=== PATIENT | female | born 1960 | race Caucasian/White ===

== ENCOUNTER 2016-06-29 17:38 | Observation (INO) | payer SELFPAY ==
[2016-06-29 17:51] VITALS: BMI 24.2
[2016-06-29 18:13] LABS: AUTOMATED BASOPHIL 0.5 % (0-2); AUTOMATED EOSINOPHIL 4.6 % (0-5); AUTOMATED LYMPH 21.9 % (17-44); AUTOMATED MONOCYTE 5.6 % (3-10); AUTOMATED NEUTROPHIL 67.4 % (45-76); MPV 8.3 fL (7.4-10.4)
[2016-06-29 18:27] LABS: BLOOD UREA NITROGEN 11 MG/DL (7-17); CALCIUM 9.6 MG/DL (8.4-10.2); CALCULATED OSMOLALITY 263 MOs/Kg (270-290); CHLORIDE 98 mEq/L (98-107); GLUCOSE 99 MG/DL (70-99); SODIUM LEVEL 137 mEq/L (137-146); TOTAL PROTEIN 7.4 G/DL (6.3-8.2)
--- NOTE | 2016-06-29 18:42 | EDPRACDOC ---
[id number] Provider: 06/29/16 18:38 Information Source: Patient Mode of Arrival: Car Home Medications: Home Medications Amlodipine [Norvasc] 5 mg PO DAILY 02/21/14 Metoprolol Tartrate [Lopressor] 25 mg PO DAILY 02/21/14 Albuterol Sulfate [Proair Hfa] 2 puff INH Q4-6H PRN 11/22/15 Montelukast Sodium [Singulair] 10 mg PO QHS 11/22/15 Oxycodone HCl [Oxycodone Immediate Release] 15 mg PO QID PRN 11/22/15 Tizanidine HCl 4 mg PO DAILY PRN 06/29/16 Trazodone HCl 100 mg PO QHS 06/29/16 Prednisone [Sterapred 10 mg/6 day pack] 21 tab PO DAILY #1 pack 06/30/16 Allergies/Adverse Reactions: Allergies Allergy/AdvReac Type Severity Reaction Status Date / Time gabapentin [From Neurontin] Allergy See Verified 06/29/16 20:49 Comments - History of Present Illness Onset: yesterday HPI: CHEST PRESSURE LEFT SIDE STARTED YESTERDAY ABOUT 1999. AFTER MILKSHAKE. N/ V WHEN SHE GOT HOME. FELT SOB LIKE A PANIC ATTACK. USES OXYGEN 2 L AT NIGHT. PAIN RETURNED AGAIN ABOUT NOON. PRESSURE 7/10. NAUSEA TODAY. NO VOMITING. NO ETOH USE. NONSMOKER. HTN, ELEVATED CHOLESTEROL. GRANDPARENTS OH'S. PT NOT DIABETIC. QUIT SMOKING 3 YEARS AGO. H/O BRONCHIOLITIS OBLITERANS PNA. STRESS TEST ABOUT 6 YEARS AGO NEGATIVE. PRESSURE WORSE WITH EXERTION. ED Past Medical History - Patient Medical History Cardiac History: Reports: Hypertension Respiratory History: Reports: Asthma Surgical History: Reports: Tonsillectomy/Adnoidectomy - Social Medical History Smoking Status: Never smoker - Physical Exam Constitutional: Alert (Awake), No apparent distress Oriented to: Time, Person, Place Last recorded Vital Signs: Last Vital Signs Temp 98.3 F 06/29/16 17:49 Pulse 56 L 06/29/16 17:49 Resp 18 06/29/16 17:49 BP 151/67 06/29/16 17:49 Pulse Ox 98 06/29/16 17:49 Oxygen Pulse Oxygen Saturation 98 O2 Device Room Air Oxygen Flow Rate Fraction of Inspired Oxygen ( FIO2) - HEENT Head: Normal ( normocephalic) Eye Exam: Normal (PERRL, EOMI, Sclera white) Oropharynx: Normal (Pharynx:Moist without exudate,Gums-no swelling) Nose: No Symptoms Reported (septum midline) Neck: Normal (FROM, trachea at midline) - Respiratory/Cardiovascular Respiratory: Normal - CTA (BBS clear to auscultation without adventitious sounds ) Cardiovascular: Normal (RRR without murmur, gallop or rub) - GI Auscultation: Normal (NABS) Palpation: Normal (Soft,No rebound or guarding, non distended) Tenderness: Non tender Mcdonnell's Sign: Negative - Musculoskeletal Back: Normal (Non-Tender) Extremities: Normal (Normal tone, Pulses 2+ No cyanosis or edema, FROM) - Integumentary Skin: Normal, Warm, Dry Lymphatics: Normal (no adenopathy) - Neurologic Memory Impaired: Normal Motor Function: Normal (Normal tone, Pulses 2+ No cyanosis or edema, FROM) Cranial Nerve: Normal (CN II-X11 intact sensation, strength 5/5) Cerebellar: Normal Mood Description: Normal Perception: Normal - Action ASA given in the ED: Yes - Results 06/29/16 17:55 06/30/16 05:55 WBC 7.6 xk/uL (3.8-10.8) 06/29/16 17:55 RBC 4.88 xM/uL (4.20-5.40) 06/29/16 17:55 Hgb 15.0 g/dL (12.0-16.0) 06/29/16 17:55 Hct 44.2 % (36-47) 06/29/16 17:55 MCV 91 fL (81-99) 06/29/16 17:55 MCH 30.8 pg (27-32) 06/29/16 17:55 MCHC 34.0 g/dl (33-36) 06/29/16 17:55 RDW 12.8 % (11.5-14.5) 06/29/16 17:55 Plt Count 263 xk/uL (130-400) 06/29/16 17:55 MPV 8.3 fL (7.4-10.4) 06/29/16 17:55 Neut % (Auto) 67.4 % (45-76) 06/29/16 17:55 Lymph % (Auto) 21.9 % (17-44) 06/29/16 17:55 Luce % (Auto) 5.6 % (3-10) 06/29/16 17:55 Eos % (Auto) 4.6 % (0-5) 06/29/16 17:55 Baso % (Auto) 0.5 % (0-2) 06/29/16 17:55 Absolute Neuts (auto) 5.09 xk/uL (1.7-8.2) 06/29/16 17:55 Absolute Lymphs (auto) 1.60 xk/uL (0.65-4.75) 06/29/16 17:55 Sodium 137 mEq/L (137-146) 06/29/16 17:55 Potassium 3.9 mEq/L (3.5-5.1) 06/29/16 17:55 Chloride 98 mEq/L (98-107) 06/29/16 17:55 Carbon Dioxide 31 mMOL/L (22-33) 06/29/16 17:55 Anion Gap 12 mEq/L (8-16) 06/29/16 17:55 BUN 11 MG/DL (7-17) 06/29/16 17:55 Creatinine 0.90 MG/DL (0.52-1.04) 06/29/16 17:55 Estimated GFR (MDRD) > 60 mL/min (>=60) 06/29/16 17:55 Glucose 99 MG/DL (70-99) 06/29/16 17:55 Calculated Osmolality 263 MOs/Kg (270-290) L 06/29/16 17:55 Calcium 9.6 MG/DL (8.4-10.2) 06/29/16 17:55 Total Bilirubin 0.5 MG/DL (0.2-1.3) 06/29/16 17:55 AST 109 IU/L (14-36) H 06/29/16 17:55 ALT 167 IU/L (9-52) H 06/29/16 17:55 Alkaline Phosphatase 143 IU/L (38-126) H 06/29/16 17:55 Total Protein 7.4 G/DL (6.3-8.2) 06/29/16 17:55 Albumin 4.2 G/DL (3.5-5.0) 06/29/16 17:55 Lab Results 06/29/16 06/29/16 17:55 17:55 WBC 7.6 RBC 4.88 Hgb 15.0 Hct 44.2 MCV 91 MCH 30.8 MCHC 34.0 RDW 12.8 Plt Count 263 MPV 8.3 Neut % (Auto) 67.4 Lymph % (Auto) 21.9 Luce % (Auto) 5.6 Eos % (Auto) 4.6 Baso % (Auto) 0.5 Absolute Neuts (auto) 5.09 Absolute Lymphs (auto) 1.60 Sodium 137 Potassium 3.9 Chloride 98 Carbon Dioxide 31 Anion Gap 12 BUN 11 Creatinine 0.90 Estimated GFR (MDRD) > 60 Glucose 99 Calculated Osmolality 263 L Calcium 9.6 Total Bilirubin 0.5 AST 109 H ALT 167 H Alkaline Phosphatase 143 H Total Protein 7.4 Albumin 4.2 Laboratory Results - last 24 hr 06/29/16 06/29/16 17:55 17:55 WBC 7.6 RBC 4.88 Hgb 15.0 Hct 44.2 MCV 91 MCH 30.8 MCHC 34.0 RDW 12.8 Plt Count 263 MPV 8.3 Neut % (Auto) 67.4 Lymph % (Auto) 21.9 Luce % (Auto) 5.6 Eos % (Auto) 4.6 Baso % (Auto) 0.5 Absolute Neuts (auto) 5.09 Absolute Lymphs (auto) 1.60 Sodium 137 Potassium 3.9 Chloride 98 Carbon Dioxide 31 Anion Gap 12 BUN 11 Creatinine 0.90 Estimated GFR (MDRD) > 60 Glucose 99 Calculated Osmolality 263 L Calcium 9.6 Total Bilirubin 0.5 AST 109 H ALT 167 H Alkaline Phosphatase 143 H Total Protein 7.4 Albumin 4.2 Laboratory Results 06/29/16 17:55 06/29/16 17:55 - EKG EKG #1 EKG Time: 17:44 -: Yes EKG interpreted by me Rate: bpm: 56 [place]: Normal Rhythm: SB Block: None Hypertrophy: None ST: Normal Comments: NORMAL EKG - Departure Yes I personally saw and evaluated the patient. Disposition: Admit IP To This Hospital Condition: Stable Final Diagnosis: Chest pain Qualifiers: Chest pain type: unspecified Qualified Code(s): R07.9 - Chest pain, unspecified Decision to Admit Time: 19:30 Decision to admit date: 07/05/16 Decision to admit: from ED - Physician Consulted Hospitalist Time Called: 19:30 Provider Called: Irving Arredondo Time Supervisor Maintenance Returned Call: 19:30
[2016-06-29 18:43] LABS: PARTIAL THROMB. TIME 25.1 SEC (22-35)
[2016-06-29] MEDS ORDERED: ASPIRIN (CHEWABLE) 81 MG TAB PO ONE (18:43)
--- NOTE | 2016-06-29 19:06 | DIRPT ---
CLINICAL DATA: Chest pain. EXAM: PORTABLE CHEST 1 VIEW COMPARISON: November 22, 2015. FINDINGS: The heart size and mediastinal contours are within normal limits. Both lungs are clear. No pneumothorax or pleural effusion is noted. The visualized skeletal structures are unremarkable. IMPRESSION: No acute cardiopulmonary abnormality seen. Electronically Signed By: Luis Wen Jr, M.D. On: 06/29/2016 19:03
[2016-06-29] MEDS ORDERED: Pharmacy Order Set Alert SCH (20:00)
[2016-06-29] MEDS ORDERED: ENOXAPARIN 40 MG/0.4 ML PFS SQ SCH (20:00)
--- NOTE | 2016-06-29 20:19 | HISTPHYS ---
- Chief Complaint Chest tightness started last night around 8:00 p.m. after a milk shake followed by vomiting - History of Present Illness Patient is a 56-year-old white female who lives with her son came into the emergency room this evening complaining of left-sided chest discomfort starting at 8:00 p.m. last night after she had a milkshake followed 5 vomiting. She felt very panicky. She has a history of BOOP and takes p.r.n. prednisone on chronic O2 and claims to have quit smoking 3 years ago a 1.5 years prior to her getting the BOOP. Her data architect is Dr. Mosley in [facility]. She mentions that the chest pressure she had last night and today seem to be exacerbated by exertion. She tells me that she starting to feel the same sensation she did 1.5 years ago with the BOOP but when I reviewed the chest x- ray it looks pretty normal. - Medical History Cardiac History: Reports: Hypertension Respiratory History: Reports: Asthma, Pneumonia (History boop 1.5 years ago) Musculoskeletal History: Reports: Osteoarthritis (Osteoporosis) Systemic History: Reports: No Significant History Psychological History: Reports: No Significant History - Surgical History Reports: Cholecystectomy, Tonsillectomy/Adnoidectomy L4-5 discs shaving - Medictions/Allergies Allergies gabapentin [From Neurontin] Allergy (Verified 11/22/15 13:52) See Comments ONE SIDE OF BODY SWELLED Current Medication List: Reviewed Home Medications Amlodipine [Norvasc] 5 mg PO DAILY 02/21/14 Metoprolol Tartrate [Lopressor] 25 mg PO DAILY 02/21/14 Albuterol Sulfate [Proair Hfa] 2 puff INH Q4-6H PRN 11/22/15 Montelukast Sodium [Singulair] 10 mg PO QHS 11/22/15 Oxycodone HCl [Oxycodone Immediate Release] 15 mg PO QID PRN 11/22/15 - Family History Reports: Hypertension, Diabetes - Social History Travel Outside of [place] in the Last 3 Months?: No Lives: With Family Smoking Status: Former smoker (Stopped cigarettes 3 years) Social History: Reports: Alcohol Use. Denies: Substance Use Disorder (But occasional wine) - Review of Systems Constitutional: No Symptoms Reported (No Fever, chills, wt loss/gain, diaphoresis,fatigue/malaise.) Eyes: No Symptoms Reported (No blurry vision, visual changes, eye pain, or eye redness.) Ears: No Symptoms Reported (No ear pain or discharge) Nose: No Symptoms Reported (No nasal discharge/congestion or bleeding) Mouth: No Symptoms Reported (No oropharyngeal lesions or erythema) Throat/Neck: No Symptoms Reported (No throat pain or swelling.No oropharyngeal lesions or erythema.) Respiratory: Shortness of Breath Cardiovascular: Chest Pain Gastrointestinal: No Symptoms Reported (No abdominal pain, nausea, vomiting, diarrhea, constipation, or bloody stool.) Genitourinary: No Symptoms Reported (No dysuria or hematuria.) Neurological: No Symptoms Reported (No headache, dizziness, seizures, or focal weakness.) Musculoskeletal:: No Symptoms Reported Integumentary: No Symptoms Reported (no rashes or lesions) Allergic/Immunologic: No Symptoms Reported (no rashes or lesions) Hematologic: No Symptoms Reported (No chronic anemia, bleeding, or easy bruising.), Other (Lymphatics- no lymph node swelling or pain.) Endocrine: No Symptoms Reported (No thyroid issues, polyuria, or polydipsia.) Psychiatric: No Symptoms Reported (Fully oriented, with normal and appropriate affect.) - Physical Exam Vital Signs: Initial Vitals Temperature 98.3 F 06/29/16 17:49 Pulse Rate 56 L 06/29/16 17:49 Respiratory Rate 18 06/29/16 17:49 Blood Pressure 151/67 06/29/16 17:49 Pulse Oxygen Saturation 98 06/29/16 17:49 Constitutional: Alert (Awake, Fully oriented. Normal and appropriate affect.Well appearing. Well nourished.), No apparent distress Oriented to: Time, Person, Place - HEENT Head: Normal (normocephalic, atraumatic.), Other (No cervical lymphadenopathy. No supraclavicular lymphadenopathy. Neck: No palpable mass, supple , trachea midline.) Eye: Normal (pupils equal, reactive to light, and round; EOMI, Sclera white) Oropharynx: Normal (Pharynx: Moist without exudate,Gums-no swelling, No oropharyngeal lesions or erythema, Mucous membranes are dry.) ENT EAC: Normal (No oropharyngeal lesions or erythema. Mucous membranes are dry. ) TMJ: Normal Nose: No Symptoms Reported (septum midline, Nares patent, without discharge or bleeding.) Respiratory: Normal - CTA (Clear to auscultation bilaterally. No wheezing, rales , rhonchi. Chest wall movements are symmetric. No use of accessory muscles to breathe.) Cardiovascular: Normal (RRR , Normal S1, S2. No murmurs, rubs, or gallops. PMI non-displaced. Carotids: no carotid bruits. No bradycardia or tachycardia. DP pulses 2+ bilaterally.) - GI Auscultation: Normal (normal active sounds) Palpation: Normal (Soft,non distended,nontender. No hepatosplenomegaly.) Tenderness: Non tender (No rebound or guarding) Mcdonnell's Sign: Negative - Musculoskeletal Back: Normal (Non-Tender) Extremities: Normal (Normal tone, DP pulses 2+ bilaterally, No cyanosis or edema bilaterally, FROM bilaterally.) Spine: non-tender, normal alignment, limited range of motion - Integumentary Skin: Normal (Clean, dry, and intact. No rashes. No lesions.) Lymphatics: Normal (No cervical lymphadenopathy. No supraclavicular lymphadenopathy.) - Neurologic Memory Impaired: Normal Motor Function: Normal (Motor 5/5 throughout.Normal tone, Pulses 2+ No cyanosis or edema, FROM) Cranial Nerve: Normal (CN II-XII intact sensation, strength 5/5) Cerebellar: Normal. negative: Ataxia, Past-Pointing, Tremor Mood Description: Normal (Fully oriented. Normal and appropriate affect.) Thought: Coherent Perception: Normal (Normal and appropriate affect.) - Focused CV Perfusion Exam Vital Signs: Last Vital Signs Temp 98.3 F 06/29/16 17:49 Pulse 52 L 06/29/16 19:18 Resp 20 06/29/16 19:18 BP 147/69 06/29/16 19:18 Pulse Ox 97 06/29/16 19:18 - Lab Results 06/29/16 17:55 06/29/16 17:55 Laboratory Results - last 24 hr 06/29/16 06/29/16 06/29/16 17:55 17:55 17:55 WBC 7.6 RBC 4.88 Hgb 15.0 Hct 44.2 MCV 91 MCH 30.8 MCHC 34.0 RDW 12.8 Plt Count 263 MPV 8.3 Neut % (Auto) 67.4 Lymph % (Auto) 21.9 [place] % (Auto) 5.6 Eos % (Auto) 4.6 Baso % (Auto) 0.5 Absolute Neuts (auto) 5.09 Absolute Lymphs (auto) 1.60 PT 10.7 INR 1.0 APTT 25.1 Sodium 137 Potassium 3.9 Chloride 98 Carbon Dioxide 31 Anion Gap 12 BUN 11 Creatinine 0.90 Estimated GFR (MDRD) > 60 Glucose 99 Calculated Osmolality 263 L Calcium 9.6 Total Bilirubin 0.5 AST 109 H ALT 167 H Alkaline Phosphatase 143 H Troponin I < 0.01 Ddp-J-Heqojllidas Pept 125 Total Protein 7.4 Albumin 4.2 06/29/16 06/29/16 21:20 23:45 WBC RBC Hgb Hct MCV MCH MCHC RDW Plt Count MPV Neut % (Auto) Lymph % (Auto) Howell % (Auto) Eos % (Auto) Baso % (Auto) Absolute Neuts (auto) Absolute Lymphs (auto) PT INR APTT Sodium Potassium Chloride Carbon Dioxide Anion Gap BUN Creatinine Estimated GFR (MDRD) Glucose Calculated Osmolality Calcium Total Bilirubin AST ALT Alkaline Phosphatase Troponin I < 0.01 < 0.01 Wmw-P-Tqemesegjnq Pept Total Protein Albumin - Diagnostic Findings Chest x-ray shows normal size heart no acute infiltrate no pneumothorax. EKG shows sinus bradycardia rates 56 with Q-wave in lead 3 - Assessment (1) Chest pain R07.9 - CHEST PAIN, UNSPECIFIED Acute Present on Admission: Yes Qualifiers: Chest pain type: unspecified Ischemic chest pain type: I Qualified Code(s ): R07.9 - Chest pain, unspecified Exertional chest discomfort warrants follow-up stress testing in a.m. as troponins turn negative. (2) BOOP (bronchiolitis obliterans with organizing pneumonia) J84.89 - OTHER SPECIFIED INTERSTITIAL PULMONARY DISEASES Chronic Present on Admission: Yes Patient has a history of boop. Started on Solu-Medrol for now but discontinue soon as I doubt she has recurrence of that serious disorder. (3) Hypertension I10 - ESSENTIAL (PRIMARY) HYPERTENSION Chronic Present on Admission: Yes Qualifiers: Hypertension type: essential hypertension Qualified Code(s): I10 - Essential (primary) hypertension Continue antihypertensive therapy. (4) Osteoporosis M81.0 - AGE-RELATED OSTEOPOROSIS W/O CURRENT PATHOLOGICAL FRACTURE Chronic Present on Admission: Yes Will need to verify this with bone densitometry as outpatient. (5) Chronic respiratory failure J96.10 - CHRONIC RESPIRATORY FAILURE, UNSP W HYPOXIA OR HYPERCAPNIA Chronic Present on Admission: Yes Qualifiers: Respiratory failure complication: hypoxia Qualified Code(s): J96.11 - Chronic respiratory failure with hypoxia On chronic O2 at 2 liters/minute as a residual effect of cigarettes and boop. Case Care Discussed with: Patient, Family, Nursing Staff Total Time: 54 min Critical Care: No Code: 12153
[2016-06-29] MEDS ORDERED: Vaccine Screening Complete SCH (21:00)
[2016-06-29] MEDS: NITROGLYCERINE 0.4 MG TAB SL PRN ×2 (21:26→21:35)
[2016-06-29] MEDS ORDERED: LORAZEPAM 1 MG TAB SL PRN (23:44)
[2016-06-30] MEDS: METHYLPREDNISOLONE 40 MG/1 ML VIAL IV SCH ×2 (00:26→08:00)
[2016-06-30 06:58] LABS: LDL (calc.) 184.4 MG/DL (<100); VLDL (calc.) 17.6 MG/DL (5-40)
[2016-06-30 08:10] VITALS: BP 119/63; TEMP 97.7
[2016-06-30 08:54] VITALS: PULSE 58
--- NOTE | 2016-06-30 10:09 | PCM.DCS92 ---
- Final/Secondary Discharge Diagnosis (1) Chest pain Acute R07.9 - CHEST PAIN, UNSPECIFIED Present on Admission: Yes unspecified I R07.9 - Chest pain, unspecified Comment: Exertional chest discomfort warrants follow-up stress testing in a.m. as troponins turn negative. (2) BOOP (bronchiolitis obliterans with organizing pneumonia) Chronic J84.89 - OTHER SPECIFIED INTERSTITIAL PULMONARY DISEASES Present on Admission: Yes Comment: Patient has a history of boop. Started on Solu-Medrol for now but discontinue soon as I doubt she has recurrence of that serious disorder. (3) Hypertension Chronic I10 - ESSENTIAL (PRIMARY) HYPERTENSION Present on Admission: Yes essential hypertension I10 - Essential (primary) hypertension Comment: Continue antihypertensive therapy. (4) Osteoporosis Chronic M81.0 - AGE-RELATED OSTEOPOROSIS W/O CURRENT PATHOLOGICAL FRACTURE Present on Admission: Yes Comment: Will need to verify this with bone densitometry as outpatient. (5) Chronic respiratory failure Chronic J96.10 - CHRONIC RESPIRATORY FAILURE, UNSP W HYPOXIA OR HYPERCAPNIA Present on Admission: Yes hypoxia J96.11 - Chronic respiratory failure with hypoxia Comment: On chronic O2 at 2 liters/minute as a residual effect of cigarettes and boop. Discharge Disposition: Home Discharge Condition: Stable Cognitive Discharge Status: Unimpaired Fuctional Discharge Status: Independent Physician Follow up/Referrals: Jese Mayfield PA [Primary Care Provider] - One Week Rosendo Tello MD [Staff Physician] - Two Weeks (NEW PT WITH BOOP) Home Medications / New Prescriptions: New Prednisone [Sterapred 10 mg/6 day pack] 21 tab PO DAILY #1 pack Continue Metoprolol Tartrate [Lopressor] 25 mg PO DAILY Amlodipine [Norvasc] 5 mg PO DAILY Montelukast Sodium [Singulair] 10 mg PO QHS Albuterol Sulfate [Proair Hfa] 2 puff INH Q4-6H PRN PRN Reason: Shortness Of Breath Oxycodone HCl [Oxycodone Immediate Release] 15 mg PO QID PRN PRN Reason: Pain Trazodone HCl 100 mg PO QHS Tizanidine HCl 4 mg PO DAILY PRN PRN Reason: Muscle Spasms Discharge Home Medication List Amlodipine [Norvasc] 5 mg PO DAILY 02/21/14 [History Confirmed 06/29/16] Metoprolol Tartrate [Lopressor] 25 mg PO DAILY 02/21/14 [History Confirmed 06/29] Albuterol Sulfate [Proair Hfa] 2 puff INH Q4-6H PRN 11/22/15 [History Confirmed 06/29/16] Montelukast Sodium [Singulair] 10 mg PO QHS 11/22/15 [History Confirmed 06/29/16 ] Oxycodone HCl [Oxycodone Immediate Release] 15 mg PO QID PRN 11/22/15 [History Confirmed 06/29/16] Tizanidine HCl 4 mg PO DAILY PRN 06/29/16 [History Confirmed 06/29/16] Trazodone HCl 100 mg PO QHS 06/29/16 [History Confirmed 06/29/16] Prednisone [Sterapred 10 mg/6 day pack] 21 tab PO DAILY #1 pack 06/30/16 [Rx] New Discharge Medications (Rx) Prednisone [Sterapred 10 mg/6 day pack] 21 tab PO DAILY #1 pack 06/30/16 [Rx] O2 Device: Nasal Cannula Oxygen Flow Rate: 2 Oxygen to be used after Discharge: At Night or During Sleep Diet at Discharge: As Tolerated, Heart Healthy Call Office For: Worsening Symptoms, Fever over 100.5, Pain Uncontrolled By Meds Discontinue use of:: Alcohol - DC Summary Notes Hospital Course Note:: Discharge summary on patient named XIANG HODGE admitted to [facility][1] on 06/29/16 by Irving Arredondo MD. Date of discharge is []. UNFORTUNATE 56-YEAR-OLD FEMALE WITH BE 0 0 P WHO IS FOLLOWED BY DR. KIRAN VALLEJO IN [place]. SHE STATES IT IS DIFFICULT TO GET THERE AND SHE HAS NOT SEEN HIM IN A WHILE. SHE HAS NO FOLLOW-UP APPOINTMENT SCHEDULED. SHE IS INTERESTED IN CHANGING TO A PHYSICIAN LOCALLY. I WILL SET HER UP WITH AN APPOINTMENT WITH MR. MAYFIELD WHO CAN REFER HER TO DR. TELLO. PATIENT ADMITTED WITH CHEST PAIN SHE RULED OUT FOR MYOCARDIAL INFARCTION UNDERWENT STRESS TESTING. HER EXERCISE ECHOCARDIOGRAM STRESS TEST WAS UNREMARKABLE AND THEREFORE SHE IS STABLE FOR DISCHARGE HOME. I EXPLAINED TO HER THAT THE PURPOSE OF HOSPITALIZATION WAS DID DETERMINE IF THE CHEST PAIN WAS LIFE-THREATENING AND IS NOT I ENCOURAGED HER TO SEE MR. MAYFIELD FOR EVALUATION OF HER GI TRACT AND TO ESTABLISH CARE WITH A LOCAL SALVAGE CLERK. I AM REFERRING HER TO DR. TELLO. AT THIS POINT SHE HAS REACHED MAXIMAL BENEFIT OF HOSPITALIZATION. SHE IS STABLE FOR DISCHARGE HOME. Total Time: 45 min - Physical Exam Vital Signs: Last Vital Signs Temp 97.7 F 06/30/16 08:00 Pulse 58 L 06/30/16 08:00 Resp 16 06/30/16 08:00 BP 119/63 06/30/16 08:00 Pulse Ox 98 06/30/16 08:00 Oxygen Pulse Oxygen Saturation 98 O2 Device Nasal Cannula Oxygen Flow Rate 2 Fraction of Inspired Oxygen ( FIO2) Constitutional: No apparent distress, Alert (Awake, Fully oriented. Normal and appropriate affect.Well appearing. Well nourished.) Oriented to: Time, Person, Place - HEENT Head: Normal (normocephalic, atraumatic.), Other (No cervical lymphadenopathy. No supraclavicular lymphadenopathy. Neck: No palpable mass, supple , trachea midline.) Eye: Normal (pupils equal, reactive to light, and round; EOMI, Sclera white) Oropharynx: Normal (Pharynx: Moist without exudate,Gums-no swelling, No oropharyngeal lesions or erythema, Mucous membranes are dry.) ENT EAC: Normal (No oropharyngeal lesions or erythema. Mucous membranes are dry. ) TMJ: Normal Nose: No Symptoms Reported (septum midline, Nares patent, without discharge or bleeding.) - Respiratory/Cardiovascular Respiratory: Normal - CTA (Clear to auscultation bilaterally. No wheezing, rales , rhonchi. Chest wall movements are symmetric. No use of accessory muscles to breathe.) Cardiovascular: Normal (RRR , Normal S1, S2. No murmurs, rubs, or gallops. PMI non-displaced. Carotids: no carotid bruits. No bradycardia or tachycardia. DP pulses 2+ bilaterally.) - GI Auscultation: Normal (normal active sounds) Palpation: Normal (Soft,non distended,nontender. No hepatosplenomegaly.) Tenderness: Non tender (No rebound or guarding) Mcdonnell's Sign: Negative - Musculoskeletal Back: Normal (Non-Tender) Extremities: Normal (Normal tone, DP pulses 2+ bilaterally, No cyanosis or edema bilaterally, FROM bilaterally.) - Integumentary Skin: Normal (Clean, dry, and intact. No rashes. No lesions.) Lymphatics: Normal (No cervical lymphadenopathy. No supraclavicular lymphadenopathy.) - Neurologic Memory Impaired: Normal Cerebellar: Normal. negative: Ataxia, Past-Pointing, Tremor Mood Description: Normal (Fully oriented. Normal and appropriate affect.) Thought: Coherent Perception: Normal (Normal and appropriate affect.) - Other Exam Other Exam Findings: Abnormal Lab Results 06/29/16 06/30/16 17:55 05:55 Glucose 142 H Calculated Osmolality 263 L AST 109 H ALT 167 H Alkaline Phosphatase 143 H Cholesterol 257 H LDL Cholesterol, Calc 184.4 H
[2016-06-30] MEDS ORDERED: OXYCODONE HCL 5 MG TABLET PO ONE (10:16)
--- NOTE | 2016-06-30 10:50 | CAPUEKG ---
[place], [place] Test Date: 2016-06-29 Pat Name: XIANG HODGE Department: Room: 441 Gender: Female Retail Assistant Store Manager: TERESA COPELAND: Requested By: Order Number: Reading MD: Kenny Saini MD Measurements Intervals [place] Rate: 54 P: 75 NM: 122 QRS: 31 QRSD: 74 T: 68 QT: 444 QTc: 421 Interpretive Statements Sinus bradycardia Otherwise normal ECG Electronically Signed On 06-30-16 10:49:08 EST by Kenny Saini MD <[id number]> [id number]
--- NOTE | 2016-07-03 14:52 | CAPUEKG ---
[place], [place] Test Date: 2016-06-30 Pat Name: XIANG HODGE Department: Room: 441 Gender: Female Supervisor [employer]: : Requested By: Order Number: Reading MD: Jonathon Mcguire Measurements Intervals [place] Rate: 58 P: 64 RI: 110 QRS: -2 QRSD: 78 T: 44 QT: 432 QTc: 424 Interpretive Statements Sinus bradycardia with short RI Otherwise normal ECG No change from prior tracing. Electronically Signed On 07-03-16 14:51:35 EST by Jonathon Mcguire <[id number]> [id number]
== END 2016-06-30 11:26 | disposition home or self-care (01) ==
LOC: ED 17:38 → PCU 20:00
PROVIDERS: ADMIT Internal Medicine; ATTEND Hospitalist
DX: R07.9 Chest pain, unspecified (principal); J84.89 Other specified interstitial pulmonary diseases; I10 Essential (primary) hypertension; M81.0 Age-related osteoporosis without current pathological fracture; J96.11 Chronic respiratory failure with hypoxia; Z87.891 Personal history of nicotine dependence; J45.909 Unspecified asthma, uncomplicated; Z79.899 Other long term (current) drug therapy; Z99.81 Dependence on supplemental oxygen; R06.02 Shortness of breath
CPT/HCPCS: 36415; 71010; 80053; 80061; 82947; 83880; 84484; 85025; 85610; 85730; 93005; 93350; 96372; 99284; G0378; J1650; J2920; J3490